=== PATIENT | female | born 1935 | race Caucasian/White ===

== ENCOUNTER 2020-08-01 02:32 | Inpatient (IN) ==
[2020-08-01] MEDS ORDERED: Ondansetron 4 MG/2 ML VIAL IVP PRN (05:57)
[2020-08-01] MEDS ORDERED: Naloxone 0.4 MG/ML INJ IVP PRN (05:57)
[2020-08-01] MEDS ORDERED: Acetaminophen 325 MG TABLET PO PRN (06:00)
[2020-08-01] MEDS ORDERED: 0.9 % Sodium Chloride 1,000 ML IVC SCH (06:00)
[2020-08-01] MEDS ORDERED: D5% in Water 1,000 ML IVC PRN (06:01)
[2020-08-01] MEDS ORDERED: *HR* Dextrose 50 % in Water (Vial) 50 ML VIAL IVP PRN (06:01)
[2020-08-01] MEDS ORDERED: Dextrose Gel 15 GM/37.5 ML TUBE PO PRN ×2 (06:01)
[2020-08-01 07:25] LABS: Hematocrit 26.3 % (35.3-44.9); Hemoglobin 8.2 g/dL (11.5-15.4); Mean Corpuscular HGB Conc 31.2 g/dL (31.6-35.5); Mean Corpuscular Hemoglobin 30.3 pg (28.0-33.3); Red Blood Count 2.71 M/mcL (3.82-4.97)
[2020-08-01 07:27] LABS: Immature Platelets 3.8 % (1.1-6.1); Mean Platelet Volume 11.9 fL (9.4-12.4); Red Cell Distribution Width 16.1 % (11.5-14.5); White Blood Count 4.8 K/mcL (4.3-11.1)
[2020-08-01 07:35] LABS: INR 1.2; Prothrombin Time 13.6 Seconds (9.4-12.1)
[2020-08-01 08:19] LABS: Alanine Aminotransferase < 3 Units/L (7-52); Albumin 3.4 g/dL (3.5-5.7); Albumin/Globulin Ratio 1.4 (1.1-2.2); Alkaline Phosphatase 116 Units/L (34-104); Aspartate Amino Transferase 7 Units/L (13-39); BUN/Creatinine Ratio 22 (6-26); Bilirubin,Total 0.2 mg/dL (0.3-1.0); Blood Urea Nitrogen 110 mg/dL (8-23); Calcium 8.8 mg/dL (8.6-10.3); Carbon Dioxide 17 mEq/L (23-29); Chloride 110 mEq/L (98-107); Globulin 2.5 g/dL (2.4-3.5); Glucose 76 mg/dL (70-105); Osmolality,Calculated 326 (280-300); Phosphorous 4.7 mg/dL (2.7-4.5); Potassium 5.5 mEq/L (3.5-5.1); Sodium 141 mEq/L (136-145); Total Protein 5.9 g/dL (6.4-8.9); eGFR For African Americans 10 (> 60); eGFR For Non-African Americans 8 (> 60)
[2020-08-01] MEDS: Insulin LISPRO 300 UNITS/3 ML VIAL SUBQ SCH ×4 (08:38→20:57)
[2020-08-01 08:39] LABS: Platelet Count 51 K/mcL (140-400)
[2020-08-01] MEDS: cefTRIAXone 1,000 MG in 0.9 % Sodium Chloride Mini Bag 100 ML IVPB SCH (08:39)
[2020-08-01 08:46] LABS: Neutrophils # 3.8 K/mcL (1.6-8.9)
[2020-08-01 08:47] LABS: Platelet Estimate Marked Decrease (Normal); Toxic Granulation Present (Not Present)
[2020-08-01 09:43] LABS: Amorphous Sediment,Urine Few per hpf (None-Few); Bacteria,Urine Few per hpf (None-Few); Bilirubin,Urine Negative (Negative); Blood,Urine Large (Negative); Clarity,Urine Turbid (Clear); Color,Urine Colorless (Yellow); Glucose,Urine (UA) Normal (Normal); Hyaline Casts,Urine Few per lpf (None Seen); Ketones,Urine Negative (Negative); Leukocyte Esterase,Urine Large (Negative); Mucus,Urine Few per lpf (None-Few); Nitrite,Urine Negative (Negative); PH,Urine 5.5 pH Units (5.0-8.0); Protein,Urine 30 mg/dL (Neg-Trace); RBC,Urine 50-100 per hpf (0-3); Specific Gravity,Urine 1.013 (1.010-1.025); Squamous Epithelial Cell,Urine Few per hpf (None-Few); Urobilinogen,Urine Normal (Normal); WBC,Urine TNTC per hpf (0-3)
[2020-08-01 10:47] LABS: Estimated Average Glucose 151 mg/dl; Hemoglobin A1C 6.9 %
[2020-08-01 10:47] LABS: Calcium 8.9 mg/dL (8.6-10.3); Potassium 4.9 mEq/L (3.5-5.1)
[2020-08-01 11:10] LABS: Uric Acid 2.9 mg/dL (2.3-7.6)
[2020-08-01 11:37] LABS: Hepatitis B Surface Antigen Nonreactive (Nonreactive)
[2020-08-01 11:48] LABS: Complement C3 117 mg/dL (87-200)
[2020-08-01] MEDS ORDERED: Sodium Bicarbonate 150 MEQ in Water for inj. (sterile) 1,000 ML IVC SCH (12:00)
[2020-08-01 12:06] LABS: Hepatitis B Core IgM Nonreactive (Nonreactive)
[2020-08-01 12:08] LABS: Hepatitis A Antibody IgM Nonreactive (Nonreactive)
[2020-08-01 14:25] LABS: Hepatitis C Virus Antibody Nonreactive (Nonreactive)
[2020-08-01] MEDS: Carbidopa/Levodopa 25/100 TABLET PO SCH (21:27)
[2020-08-02] MEDS: 0.9 % Sodium Chloride 1,000 ML IVC SCH ×3 (01:17→12:13)
[2020-08-02 01:42] LABS: Hematocrit 27.4 % (35.3-44.9); Hemoglobin 8.6 g/dL (11.5-15.4); Immature Platelets 4.2 % (1.1-6.1); Mean Corpuscular HGB Conc 31.4 g/dL (31.6-35.5); Mean Corpuscular Hemoglobin 30.3 pg (28.0-33.3); Mean Corpuscular Volume 96.5 fL (83.0-100.0); Mean Platelet Volume 11.1 fL (9.4-12.4); Red Blood Count 2.84 M/mcL (3.82-4.97); Red Cell Distribution Width 15.8 % (11.5-14.5); White Blood Count 5.2 K/mcL (4.3-11.1)
[2020-08-02 01:59] LABS: Calcium 8.1 mg/dL (8.6-10.3); Potassium 4.4 mEq/L (3.5-5.1)
[2020-08-02 05:05] LABS: Protein/Creatinine Ratio,Urine 1.12 mg/mg (0.00-0.20); Sodium, Urine 69.5 mEq/L
[2020-08-02] MEDS: Carbidopa/Levodopa 25/100 TABLET PO SCH ×2 (09:02→22:51)
[2020-08-02] MEDS: cefTRIAXone 1,000 MG in 0.9 % Sodium Chloride Mini Bag 100 ML IVPB SCH (09:02)
[2020-08-02] MEDS: Insulin LISPRO 300 UNITS/3 ML VIAL SUBQ SCH ×4 (09:03→22:58)
[2020-08-02 14:16] LABS: Lambda Qnt Free Light Chains 56.46 mg/L (5.71-26.30)
[2020-08-02] MEDS: Mirtazapine 15 MG TABLET PO SCH (22:51)
[2020-08-02] MEDS: QUEtiapine Fumarate 25 MG TABLET PO SCH (22:51)
[2020-08-03] MEDS: 0.9 % Sodium Chloride 1,000 ML IVC SCH ×2 (03:55→12:47)
[2020-08-03 05:40] LABS: Calcium 8.2 mg/dL (8.6-10.3); Potassium 3.8 mEq/L (3.5-5.1)
[2020-08-03 06:03] LABS: Folate 6.9 ng/mL (3.0-16.0)
[2020-08-03 08:30] LABS: ANA IgG by ELISA NONE DETECTED (None Detected); Kappa Qnt Free Light Chains 132.96 mg/L (3.30-19.40)
[2020-08-03 08:42] LABS: Serine Protease-3 Antibody 1 AU/mL (0-19)
[2020-08-03] MEDS: Carbidopa/Levodopa 25/100 TABLET PO SCH ×2 (09:44→20:00)
[2020-08-03] MEDS: cefTRIAXone 1,000 MG in 0.9 % Sodium Chloride Mini Bag 100 ML IVPB SCH (09:45)
[2020-08-03] MEDS: Insulin LISPRO 300 UNITS/3 ML VIAL SUBQ SCH ×4 (10:32→19:39)
[2020-08-03] MEDS: D5% in Water 1,000 ML IVC SCH ×2 (10:35→23:59)
[2020-08-03 12:14] LABS: Eosinophils % 0.2 %; Hematocrit 26.7 % (35.3-44.9); Hemoglobin 8.2 g/dL (11.5-15.4); Mean Corpuscular HGB Conc 30.7 g/dL (31.6-35.5); Mean Corpuscular Volume 97.8 fL (83.0-100.0); Red Blood Count 2.73 M/mcL (3.82-4.97)
[2020-08-03 12:16] LABS: Basophils % 0.4 %; Immature Granulocytes % 1.3 % (0-4); Immature Platelets 2.4 % (1.1-6.1); Lymphocytes # 0.8 K/mcL (0.6-4.6); Lymphocytes % 15.8 %; Monocytes # 0.5 K/mcL (0.0-1.3); Monocytes % 8.9 %; Neutrophils # 3.8 K/mcL (1.6-8.9); Platelet Count 58 K/mcL (140-400); Segmented Neutrophils % 73.4 %; White Blood Count 5.2 K/mcL (4.3-11.1)
[2020-08-03] MEDS: QUEtiapine Fumarate 25 MG TABLET PO SCH (20:00)
[2020-08-03] MEDS: Mirtazapine 15 MG TABLET PO SCH (20:00)
[2020-08-04 02:45] LABS: Eosinophils % 0.3 %; Hemoglobin 8.4 g/dL (11.5-15.4); Immature Granulocytes % 1.4 % (0-4); Mean Corpuscular Volume 98.6 fL (83.0-100.0); Red Cell Distribution Width 15.9 % (11.5-14.5)
[2020-08-04 02:47] LABS: Basophils % 0.2 %; Hematocrit 27.6 % (35.3-44.9); Immature Platelets 2.8 % (1.1-6.1); Lymphocytes # 0.8 K/mcL (0.6-4.6); Lymphocytes % 12.2 %; Mean Corpuscular HGB Conc 30.4 g/dL (31.6-35.5); Mean Platelet Volume 10.9 fL (9.4-12.4); Monocytes # 0.5 K/mcL (0.0-1.3); Monocytes % 7.4 %; Segmented Neutrophils % 78.5 %; White Blood Count 6.7 K/mcL (4.3-11.1)
[2020-08-04 02:57] LABS: Calcium 8.2 mg/dL (8.6-10.3); Neutrophils # 5.3 K/mcL (1.6-8.9); Platelet Count 62 K/mcL (140-400); Potassium 3.5 mEq/L (3.5-5.1)
[2020-08-04] MEDS: cefTRIAXone 1,000 MG in 0.9 % Sodium Chloride Mini Bag 100 ML IVPB SCH (08:17)
[2020-08-04] MEDS: Carbidopa/Levodopa 25/100 TABLET PO SCH ×2 (08:21→21:03)
[2020-08-04] MEDS: Insulin LISPRO 300 UNITS/3 ML VIAL SUBQ SCH ×4 (08:21→21:13)
[2020-08-04] MEDS: D5% in Water 1,000 ML IVC SCH ×2 (14:02→15:44)
[2020-08-04] MEDS ORDERED: Acetaminophen 325 MG TABLET PO PRN (14:42)
[2020-08-04] MEDS ORDERED: Dextrose Gel 15 GM/37.5 ML TUBE PO PRN ×2 (14:42)
[2020-08-04] MEDS ORDERED: Ondansetron 4 MG/2 ML VIAL IVP PRN (14:42)
[2020-08-04] MEDS ORDERED: *HR* Dextrose 50 % in Water (Vial) 50 ML VIAL IVP PRN (14:42)
[2020-08-04] MEDS ORDERED: D5% in Water 1,000 ML IVC PRN (14:42)
[2020-08-04] MEDS ORDERED: Naloxone 0.4 MG/ML INJ IVP PRN (14:42)
[2020-08-04] MEDS: Aspirin 325 MG TABLET PO SCH (15:44)
[2020-08-04] MEDS: Mirtazapine 15 MG TABLET PO SCH (21:02)
[2020-08-04] MEDS: QUEtiapine Fumarate 25 MG TABLET PO SCH (21:03)
[2020-08-05 03:34] LABS: Alpha 2 Globulin (PEP) 0.77 g/dL (0.48-1.05); Beta Globulin (PEP) 0.54 g/dL (0.48-1.10)
[2020-08-05] MEDS: D5% in Water 1,000 ML IVC SCH ×2 (05:10→17:54)
[2020-08-05 05:52] LABS: Calcium 8.2 mg/dL (8.6-10.3); Potassium 3.6 mEq/L (3.5-5.1)
[2020-08-05 05:57] LABS: Basophils % 0.4 %; Eosinophils % 0.7 %; Hematocrit 26.8 % (35.3-44.9); Hemoglobin 8.4 g/dL (11.5-15.4); Immature Granulocytes % 1.3 % (0-4); Lymphocytes # 1.3 K/mcL (0.6-4.6); Lymphocytes % 23.2 %; Mean Corpuscular HGB Conc 31.3 g/dL (31.6-35.5); Mean Corpuscular Volume 98.9 fL (83.0-100.0); Mean Platelet Volume 11.6 fL (9.4-12.4); Monocytes # 0.4 K/mcL (0.0-1.3); Monocytes % 7.4 %; Nucleated Red Blood Cells 0.4 /100 WBC (0); Red Blood Count 2.71 M/mcL (3.82-4.97); Red Cell Distribution Width 15.8 % (11.5-14.5); White Blood Count 5.6 K/mcL (4.3-11.1)
[2020-08-05 06:26] LABS: Anisocytosis 1+ (Not Present); Neutrophils # 3.8 K/mcL (1.6-8.9); Platelet Count 53 K/mcL (140-400); Platelet Estimate Decreased (Normal)
[2020-08-05] MEDS: Insulin LISPRO 300 UNITS/3 ML VIAL SUBQ SCH ×4 (07:27→20:24)
[2020-08-05 08:07] LABS: IFE Reflexed IFE Done; Immunoglobulin G 578 mg/dL (768-1632); Immunoglobulin M 69 mg/dL (35-263)
[2020-08-05 08:08] LABS: Immunoglobulin A 158 mg/dL (68-408)
[2020-08-05] MEDS: cefTRIAXone 1,000 MG in Water for inj. (sterile) 10 ML IVP SCH (08:22)
[2020-08-05] MEDS: Aspirin 325 MG TABLET PO SCH (08:23)
[2020-08-05] MEDS: Carbidopa/Levodopa 25/100 TABLET PO SCH ×2 (08:24→20:12)
[2020-08-05] MEDS ORDERED: D5% in Water 1,000 ML IVC SCH (20:00)
[2020-08-05] MEDS ORDERED: D5% in Water 1,000 ML IVC ONE (20:07)
[2020-08-05] MEDS: Mirtazapine 15 MG TABLET PO SCH (20:09)
[2020-08-05] MEDS: QUEtiapine Fumarate 25 MG TABLET PO SCH (20:12)
[2020-08-06 06:19] LABS: Basophils % 0.2 %; Hemoglobin 7.8 g/dL (11.5-15.4); White Blood Count 5.3 K/mcL (4.3-11.1)
[2020-08-06 06:21] LABS: Eosinophils # 0.1 K/mcL (0.0-0.6); Eosinophils % 1.3 %; Hematocrit 24.6 % (35.3-44.9); Immature Granulocytes % 0.9 % (0-4); Immature Platelets 4.1 % (1.1-6.1); Lymphocytes # 1.1 K/mcL (0.6-4.6); Lymphocytes % 19.9 %; Mean Corpuscular HGB Conc 31.7 g/dL (31.6-35.5); Mean Corpuscular Hemoglobin 30.8 pg (28.0-33.3); Mean Corpuscular Volume 97.2 fL (83.0-100.0); Mean Platelet Volume 11.5 fL (9.4-12.4); Monocytes # 0.5 K/mcL (0.0-1.3); Monocytes % 8.7 %; Red Blood Count 2.53 M/mcL (3.82-4.97); Red Cell Distribution Width 15.3 % (11.5-14.5)
[2020-08-06 06:48] LABS: Potassium 3.3 mEq/L (3.5-5.1)
[2020-08-06 06:52] LABS: Neutrophils # 3.7 K/mcL (1.6-8.9); Platelet Count 52 K/mcL (140-400)
[2020-08-06] MEDS: Insulin LISPRO 300 UNITS/3 ML VIAL SUBQ SCH ×4 (08:17→20:59)
[2020-08-06] MEDS: Carbidopa/Levodopa 25/100 TABLET PO SCH ×2 (08:37→20:58)
[2020-08-06] MEDS: Aspirin 325 MG TABLET PO SCH (08:37)
[2020-08-06] MEDS: cefTRIAXone 1,000 MG in Water for inj. (sterile) 10 ML IVP SCH (08:38)
[2020-08-06] MEDS ORDERED: D5% in Water 1,000 ML IVC SCH (17:00)
[2020-08-06] MEDS: Mirtazapine 15 MG TABLET PO SCH (20:58)
[2020-08-06] MEDS: QUEtiapine Fumarate 25 MG TABLET PO SCH (20:59)
[2020-08-07] MEDS: Insulin LISPRO 300 UNITS/3 ML VIAL SUBQ SCH ×4 (07:55→21:22)
[2020-08-07] MEDS: Carbidopa/Levodopa 25/100 TABLET PO SCH ×2 (09:41→21:22)
[2020-08-07] MEDS: Aspirin 325 MG TABLET PO SCH (09:41)
[2020-08-07] MEDS: cefTRIAXone 1,000 MG in Water for inj. (sterile) 10 ML IVP SCH (09:43)
[2020-08-07] MEDS: amLODIPine 5 MG TABLET PO SCH (09:48)
[2020-08-07 09:59] LABS: Basophils % 0.1 %; Hemoglobin 8.6 g/dL (11.5-15.4)
[2020-08-07 10:01] LABS: Eosinophils # 0.1 K/mcL (0.0-0.6); Eosinophils % 0.7 %; Hematocrit 26.9 % (35.3-44.9); Immature Granulocytes % 0.9 % (0-4); Immature Platelets 5.8 % (1.1-6.1); Lymphocytes # 1.3 K/mcL (0.6-4.6); Mean Corpuscular Hemoglobin 30.3 pg (28.0-33.3); Mean Corpuscular Volume 94.7 fL (83.0-100.0); Mean Platelet Volume 11.7 fL (9.4-12.4); Monocytes # 0.7 K/mcL (0.0-1.3); Monocytes % 9.8 %; Neutrophils # 5.3 K/mcL (1.6-8.9); Red Blood Count 2.84 M/mcL (3.82-4.97); Red Cell Distribution Width 15.1 % (11.5-14.5); Segmented Neutrophils % 71.5 %; White Blood Count 7.4 K/mcL (4.3-11.1)
[2020-08-07 10:03] LABS: Calcium 8.2 mg/dL (8.6-10.3); Potassium 3.9 mEq/L (3.5-5.1)
[2020-08-07 10:37] LABS: Platelet Count 64 K/mcL (140-400)
[2020-08-07] MEDS: QUEtiapine Fumarate 25 MG TABLET PO SCH (21:20)
[2020-08-07] MEDS: Mirtazapine 15 MG TABLET PO SCH (21:21)
[2020-08-08 06:49] LABS: Calcium 8.5 mg/dL (8.6-10.3); Magnesium 1.5 mg/dL (1.6-2.6); Phosphorous 3.1 mg/dL (2.7-4.5); Potassium 4.2 mEq/L (3.5-5.1)
[2020-08-08] MEDS ORDERED: Magnesium Oxide 400 MG TABLET PO ONE (07:18)
[2020-08-08] MEDS: Insulin LISPRO 300 UNITS/3 ML VIAL SUBQ SCH ×4 (07:51→20:52)
[2020-08-08] MEDS: Carbidopa/Levodopa 25/100 TABLET PO SCH ×2 (09:27→20:58)
[2020-08-08] MEDS: Aspirin 325 MG TABLET PO SCH (09:27)
[2020-08-08] MEDS: amLODIPine 5 MG TABLET PO SCH (09:27)
[2020-08-08] MEDS: QUEtiapine Fumarate 25 MG TABLET PO SCH (20:57)
[2020-08-08] MEDS: Mirtazapine 15 MG TABLET PO SCH (20:58)
[2020-08-09] MEDS: Insulin LISPRO 300 UNITS/3 ML VIAL SUBQ SCH ×3 (07:49→16:40)
[2020-08-09] MEDS: Carbidopa/Levodopa 25/100 TABLET PO SCH (08:05)
[2020-08-09] MEDS: amLODIPine 5 MG TABLET PO SCH (08:05)
[2020-08-09] MEDS: Aspirin 325 MG TABLET PO SCH (08:05)
[2020-08-09 10:20] LABS: Calcium 8.4 mg/dL (8.6-10.3); Potassium 3.4 mEq/L (3.5-5.1)
[2020-08-09 16:42] VITALS: BP 162/60
[2020-08-09 19:14] LABS: Adenovirus Not Detected (Not Detect); Bordetella Pertussis Not Detected (Not Detect); Chlamydophila pneumoniae Not Detected (Not Detect); Coronavirus 229E Not Detected (Not Detect); Coronavirus HKU1 Not Detected (Not Detect); Coronavirus NL63 Not Detected (Not Detect); Coronavirus OC43 Not Detected (Not Detect); Human Metapneumovirus Not Detected (Not Detect); Human Rhinovirus/Enterovirus Not Detected (Not Detect); Influenza A Subtype 2009 H1 Not Detected (Not Detect); Influenza B Not Detected (Not Detect); Mycoplasma pneumoniae Not Detected (Not Detect); Parainfluenza Virus 1 Not Detected (Not Detect); Parainfluenza Virus 2 Not Detected (Not Detect); Parainfluenza Virus 3 Not Detected (Not Detect); Parainfluenza Virus 4 Not Detected (Not Detect); Respiratory Syncytial Virus Not Detected (Not Detect); SARS-CoV-2 Not Detected (Not Detect)
== END 2020-08-09 20:12 | DRG 872 ==
LOC: 2NENU → SUATTDRO 06:04 → 3ANU 08-04 14:40 → 2ANU 08-06 03:14
PROVIDERS: ADMIT Internal Medicine; ATTEND Internal Medicine